=== PATIENT | male | born 1980 | race Caucasian/White ===

== ENCOUNTER → 2017-11-03 | Outpatient (REF) | payer MEDICAID ==
[2017-11-03 12:13] LABS: BASO # 0.1 10^3/uL (0.0-0.2); BASO % 0.3 % (0.0-1.0); EOS # 0.9 10^3/uL (0.0-0.50); EOS % 5.4 % (0.0-3.0); HEMATOCRIT 45.1 % (42.0-52.0); HEMOGLOBIN 14.7 g/dl (13.5-17.5); IMMATURE GRANULOCYTE % 0.5 % (0-3.0); LYMPH # 2.9 10^3/uL (1.5-4.5); LYMPH % 16.9 % (24.0-44.0); MEAN CORPUSCULAR HEMOGLOBIN 31.6 pg (27.0-33.0); MEAN CORPUSCULAR HGB CONC 32.6 g/dl (32.0-36.5); MONO # 1.1 10^3/uL (0.0-0.8); MONO % 6.1 % (0.0-5.0); NEUTROPHILS # 12.2 10^3/uL (1.8-7.7); NEUTROPHILS % 70.8 % (36.0-66.0); PLATELET COUNT, AUTOMATED 309 10^3/uL (150-450); RED BLOOD COUNT 4.65 10^6/uL (4.30-6.10); RED CELL DISTRIBUTION WIDTH 13.7 % (11.5-14.5); WHITE BLOOD COUNT 17.3 10^3/uL (4.0-10.0)
[2017-11-03 12:45] LABS: TOTAL 25(OH) VITAMIN D 13.3 NG/ML (30.0-100.0)
[2017-11-03 13:17] LABS: ALBUMIN 3.8 GM/DL (3.2-5.2); ALBUMIN/GLOBULIN RATIO 1.15 (1.00-1.93); ALKALINE PHOSPHATASE 55 U/L (45-117); ALT/SGPT 17 U/L (12-78); ANION GAP 7 MEQ/L (8-16); AST/SGOT 18 U/L (7-37); BILIRUBIN,TOTAL 0.3 MG/DL (0.2-1.0); BLOOD UREA NITROGEN 8 MG/DL (7-18); CARBON DIOXIDE LEVEL 26 MEQ/L (21-32); CHLORIDE LEVEL 113 MEQ/L (98-107); CHOLESTEROL LEVEL 140 MG/DL (<200); CHOLESTEROL RISK RATIO 2.916 (<5); CREATININE FOR GFR 1.27 MG/DL (0.70-1.30); GLOMERULAR FILTRATION RATE > 60.0 (>60); GLUCOSE, FASTING 91 MG/DL (70-100); HDL CHOLESTEROL 48 MG/DL (>40); LDL CHOLESTEROL 77.6 MG/DL (<100); NON-HDL-C 92 MG/DL; POTASSIUM SERUM 4.9 MEQ/L (3.5-5.1); SODIUM LEVEL 146 MEQ/L (136-145); THYROID STIMULATING HORMONE 0.712 uIU/ML (0.358-3.740); TOTAL PROTEIN 7.1 GM/DL (6.4-8.2); TRIGLYCERIDES LEVEL 72 MG/DL (<150)
== END ==
LOC: M SFHCADAM 08:34
DX: R03.0 Elevated blood-pressure reading, without diagnosis of hypertension (principal)

== ENCOUNTER → 2017-11-12 | Outpatient (REF) | payer MEDICAID ==
[2017-11-12 19:10] LABS: BASO # 0.1 10^3/uL (0.0-0.2); BASO % 0.3 % (0.0-1.0); EOS # 0.6 10^3/uL (0.0-0.50); EOS % 4.4 % (0.0-3.0); HEMATOCRIT 45.4 % (42.0-52.0); IMMATURE GRANULOCYTE % 0.8 % (0-3.0); LYMPH # 3.5 10^3/uL (1.5-4.5); LYMPH % 24.5 % (24.0-44.0); MEAN CORPUSCULAR HEMOGLOBIN 31.4 pg (27.0-33.0); MEAN CORPUSCULAR VOLUME 95.2 fl (80.0-96.0); MONO # 0.9 10^3/uL (0.0-0.8); MONO % 6.4 % (0.0-5.0); NEUTROPHILS # 9.1 10^3/uL (1.8-7.7); NEUTROPHILS % 63.6 % (36.0-66.0); PLATELET COUNT, AUTOMATED 338 10^3/uL (150-450); RED BLOOD COUNT 4.77 10^6/uL (4.30-6.10); RED CELL DISTRIBUTION WIDTH 13.6 % (11.5-14.5); WHITE BLOOD COUNT 14.3 10^3/uL (4.0-10.0)
[2017-11-12 19:19] LABS: REASON FOR REVIEW WBC/LEUKEMIA/BLAST; SLIDE REVIEW Report; SOURCE PERIPHERAL SMEAR
== END ==
LOC: M SFHCADAM 14:13
DX: D72.829 Elevated white blood cell count, unspecified (principal)

== ENCOUNTER → 2018-02-25 | Outpatient (CLI) | payer OTHER, MEDICAID | LOC: M PAIN 08:30 | DX: G56.23 Lesion of ulnar nerve, bilateral upper limbs (principal); G89.29 Other chronic pain; I10 Essential (primary) hypertension; F32.9 Major depressive disorder, single episode, unspecified; F41.9 Anxiety disorder, unspecified; F17.200 Nicotine dependence, unspecified, uncomplicated; Z79.899 Other long term (current) drug therapy; Z86.59 Personal history of other mental and behavioral disorders; Z98.890 Other specified postprocedural states | CPT/HCPCS: G0463 ==

== ENCOUNTER → 2018-05-24 | Outpatient (REF) | payer OTHER, MEDICAID ==
[2018-05-24 16:47] LABS: TOTAL 25(OH) VITAMIN D 28.4 NG/ML (30.0-100.0)
== END ==
LOC: M SFHCADAM 14:41
DX: E55.9 Vitamin D deficiency, unspecified (principal)

== ENCOUNTER → 2018-05-24 | Outpatient (CLI) | payer OTHER, MEDICAID | LOC: M ADAMS 14:53 | DX: M79.672 Pain in left foot (principal) | CPT/HCPCS: 73630 ==

== ENCOUNTER 2018-12-23 08:36 | Emergency (ER) | payer MEDICAID, OTHER ==
[~2018-12-23] VITALS: Ht 172.7 cm; Wt 91.5 kg
[2018-12-23] MEDS ORDERED: GABA-1171 PO (08:43)
[2018-12-23] MEDS ORDERED: AMOX875T2 PO (08:43)
[2018-12-23] MEDS ORDERED: DULO1CAP6 PO (08:43)
[2018-12-23] MEDS ORDERED: BUSP10TA PO (08:43)
[2018-12-23] MEDS ORDERED: KETOROLAC 30 MG/ML VIAL (J1885) IV ONE (09:15)
[2018-12-23] MEDS ORDERED: NS 1,000 ML IV ONE (09:15)
[2018-12-23 09:43] LABS: BASO % 0.2 % (0.0-1.0); EOS # 0.3 10^3/uL (0.0-0.50); EOS % 2.2 % (0.0-3.0); HEMOGLOBIN 12.3 g/dl (13.5-17.5); LYMPH # 2.3 10^3/uL (1.5-4.5); LYMPH % 15.9 % (24.0-44.0); MEAN CORPUSCULAR HEMOGLOBIN 32.5 pg (27.0-33.0); MEAN CORPUSCULAR HGB CONC 33.2 g/dl (32.0-36.5); MEAN CORPUSCULAR VOLUME 97.6 fl (80.0-96.0); MONO # 1.2 10^3/uL (0.0-0.8); MONO % 8.3 % (0.0-5.0); NEUTROPHILS # 10.8 10^3/uL (1.8-7.7); NEUTROPHILS % 72.7 % (36.0-66.0); PLATELET COUNT, AUTOMATED 264 10^3/uL (150-450); RED BLOOD COUNT 3.79 10^6/uL (4.30-6.10); WHITE BLOOD COUNT 14.8 10^3/uL (4.0-10.0)
[2018-12-23 10:10] LABS: ERYTHROCYTE SEDIMENTATION RATE 35 mm/hr (0-15)
[2018-12-23 10:26] LABS: ALBUMIN 3.3 GM/DL (3.2-5.2); BILIRUBIN,DIRECT 0.2 MG/DL (0.0-0.2); BILIRUBIN,TOTAL 0.6 MG/DL (0.2-1.0); C REACTIVE PROTEIN QUANTITATIV 5.12 MG/DL (0.00-0.30); TOTAL PROTEIN 6.2 GM/DL (6.4-8.2)
[2018-12-23] MEDS ORDERED: ISOVUE-370 76% 100ML VIAL (Q9967) As Ordered ONE (10:49)
--- NOTE | 2018-12-23 11:30 | REP ---
MAXILLOFACIAL CT STUDY WITH IV CONTRAST: HISTORY: Left dental swelling. Rule out abscess. A BB is affixed to the skin superior to the area of concern. CT CONTRAST DOSE: 75 mL of intravenous Isovue 370. CT FINDINGS: The opaque BB is seen at the anterior portion of the zygomatic arch on the left side. There is left malar facial swelling diffusely. There is extensive opacification of the left maxillary sinus. Bony sinus margins are intact. There are carious left maxillary teeth. There is subtle radiolucency around the roots of the posterior most maxillary molar on the left. Adjacent to the left maxillary alveolus, there is a low-density collection with an enhancing margin consistent with a developing abscess. This measures 1.3 x 2.5 x 1.6 cm in diameter. There is surrounding inflammatory edema. No other abnormal facial fluid collection is seen. The parotid and submandibular glands are normal and symmetric. Slightly prominent reactive anterior cervical nodes are noted. There is minimal mucosal thickening in the right maxillary and bilateral ethmoid air cells. The paranasal sinuses are otherwise clear. No intraorbital or intracranial abnormality is seen in the soft tissues. IMPRESSION: Nearly complete opacification of the left maxillary sinus. Carious left maxillary teeth. There is a 2.5 x 1.3 x 1.6 cm low density area with enhancing margins consistent with developing abscess just lateral to the left maxillary alveolus. Surrounding edema. Electronically Signed by Yeison Scott MD 12/23/2018 02:23 P
[2018-12-23] MEDS ORDERED: MORPHINE 4 MG/ML 1ML VIAL/SYRINGE (J2270) IV ONE (11:45)
[2018-12-23] MEDS ORDERED: CLINDAMYCIN 900 MG in IV 1 EA IV ONE (11:45)
[2018-12-23] MEDS ORDERED: PERC5TAB12 PO (13:04)
[2018-12-23 13:09] VITALS: BP 142/88
--- NOTE | 2018-12-27 14:30 | ED PDOC ---
Post-Departure Follow-Up dr galvan and luz elena denson faxed formal report of ct max fac for fu Jillian Street MD Dec 27, 2018 14:30
== END 2018-12-23 13:22 | disposition home or self-care (01) ==
LOC: M ED 08:36
DX: K04.7 Periapical abscess without sinus (principal); I10 Essential (primary) hypertension; Z79.899 Other long term (current) drug therapy; F17.210 Nicotine dependence, cigarettes, uncomplicated
CPT/HCPCS: 70487; 80047; 80076; 83605; 85025; 85652; 86140; 87040; 96361; 96365; 96375; 99284; J1885; J2270; Q9967

== ENCOUNTER → 2019-02-21 | Outpatient (CLI) | payer OTHER, MEDICAID ==
[~2019-02-21] MED LIST: AMOX875T2 PO; AUGM875T28 PO; BUPIVACAINE HCL 0.25% 30 ML VIAL As Ordered ONE; BUSP10TA PO; DULO1CAP6 PO; GABA-1171 PO; ISOVUE-M 200 41% 20ML VIAL (Q9966) As Ordered ONE; LIDOCAINE 1% SDV INJ 30 ML VIAL As Ordered ONE; PERC5TAB12 PO; PRED20TA PO; TRIAMCINOLONE ACETONIDE SUSP 40 MG/ML VIAL (J3301) As Ordered ONE
--- NOTE | 2019-02-25 00:28 | ECWPNPC ---
PATIENT NAME: MILLICENT NAVARRO : 1980 GENDER: MALE VISIT DATE: 02/21/2019 DISCHARGE DATE: 02/21/19 1606 VISIT LOCKED DATE TIME: PHYSICIAN: ELAN PANG MD RESOURCE: ELAN PANG MD REASON FOR APPOINTMENT 1. BILATERAL HAND PAIN HISTORY OF PRESENT ILLNESS PAIN SCREENING: PATIENT HAS A COMPLAINT OF ACUTE OR CHRONIC PAIN :YES 38 YEAR OLD MALE PATIENT WITH A HISTORY OF CHRONIC UPPER EXTREMITY PAIN. THE PATIENT DESCRIBES THE PAIN TENDER, SHARP, AND DAILY WITH A PAIN SCORE OF 7-10/10 DEPENDING ON PHYSICAL ACTIVITY. THE PATIENT SAYS HE HAS BEEN SUFFERING FROM THIS PAIN FOR MANY YEARS. THE PATIENT STATES HE HAS HAD SURGERIES OF BOTH HANDS DONE IN THE PAST, BUT HIS PAIN STILL PERSISTS. THE PATIENT SAYS THE PAIN IS AFFECTING HIS ABILITY TO GRASP ANYTHING WITH HIS HANDS, WORK, OR FUNCTION IN DAILY LIFE ACTIVITIES. PATIENT DENIES UNEXPLAINABLE WEIGHT LOSS, FEVER, CHILLS, NEW CHANGES ON HIS URINARY OR BOWEL CONTROL. FALL RISK SCREENING: SCREENING :NO FALLS REPORTED IN THE LAST YEAR CURRENT MEDICATIONS TAKING CYMBALTA 60 MG CAPSULE DELAYED RELEASE PARTICLES 1 CAPSULE ORALLY ONCE A DAY TAKING BUSPIRONE HCL 10 MG TABLET 1 TABLET ORALLY THREE TIMES A DAY TAKING GABAPENTIN 300 MG CAPSULE 1 CAPSULE ORALLY TWICE DAILY NOT-TAKING AMOXICILLIN-POT CLAVULANATE 875-125 MG TABLET 1 TABLET ORALLY EVERY 12 HRS NOT-TAKING TIZANIDINE HCL 2 MG TABLET 1 TABLET NEEDED ORALLY BEFORE BEDTIME MAY REPEAT IN 4 HRS MDD2 NOT-TAKING LISINOPRIL 10 MG TABLET 1 TABLET ORALLY ONCE A DAY NOT-TAKING VITAMIN D 2000 UNIT TABLET 1 TABLET ORALLY ONCE A DAY MEDICATION LIST REVIEWED AND RECONCILED WITH THE PATIENT PAST MEDICAL HISTORY JARET DEP MARIJUANA-MEDICAL HTN -EKG 12/15 SR DEPRESSION/ANXIETY H/O OPIATE ADDICTION VIT D DEF CTS - B ALLERGIES N.K.D.A. SURGICAL HISTORY CARPAL TUNNEL RELEASE, B 2001 CHOLECYSTECTOMY TEENAGER ULNAR/CARPAL TUNNEL RELEASE, B 2010 2 TEETH EXTRACTED 2018 FAMILY HISTORY FATHER: 50 YRS, CAD, S/P CABG, [place], DM2 - INSULIN DEP, DIAGNOSED WITH HEART DISEASE, DIABETES MOTHER: 50 YRS, CANCER - LUNG, PANCREATIC, CANCER SIBLINGS: ALIVE, 1977 - ESTRANGED 1980 - ESTRANGED SON(S): ALIVE 18 YRS, NO KNOWN MEDICAL PROBLEMS- ESTRANGED DAUGHTER(S): ALIVE 16 YRS, NO KNOWN MEDICAL PROBLEMS -ESTRANGED 2 BROTHER(S) - HEALTHY. 1 SON(S) , 1 DAUGHTER(S) - HEALTHY. SOCIAL HISTORY GENERAL: TOBACCO USE ARE YOU A:CURRENT SMOKER ARE YOU INTERESTED IN QUITTING?NOT READY TO QUIT COUNSELED THE PATIENT ON SMOKING EFFECTS, EDUCATION [id number]/26/2019 HOW MANY CIGARETTES A DAY DO YOU SMOKE?6-10 HOW SOON AFTER YOU WAKE UP DO YOU SMOKE YOUR FIRST CIGARETTE?6-30 MIN HOW OFTEN DO YOU SMOKE CIGARETTES?EVERY DAY PATIENT COUNSELED ON THE DANGERS OF TOBACCO USE AND URGED TO QUIT:02/21/2019 OTHERS AT HOME: ELMER, HERMELINDA.. EDUCATION LEVEL OF EDUCATION:NOT FINISHED HIGH SCHOOL 11 TH GRADE LANGUAGE LANGUAGES SPOKEN:GUINEAN DOMESTIC VIOLENCE DO YOU FEEL SAFE IN YOUR ENVIRONMENT?YES BMI CARE GOAL FOLLOW-UP ABOVE NORMAL BMI FOLLOW-UPDIETARY MANAGEMENT EDUCATION, GUIDANCE, AND COUNSELING RECREATIONAL DRUG USE DRUG USE?YES HOW OFTEN AND HOW MUCH? MEDICAL MARIJUANA, 2 GRAMS DAILY, 3-4 JOINTS DAILY LEARNING BARRIERS / SPECIAL NEEDS BARRIERS TO LEARNING?NO HEARING IMPAIRED?NO VISION IMPAIRED?NO COGNITIVELY IMPAIRED?NO READINESS TO LEARN?YES LEARNING PREFERENCES?YES :DEMONSTRATION/VERBAL INSTRUCTION LEARNING CAPABILITIES PRESENT?YES EMOTIONAL BARRIERS?NO SPECIAL DEVICES?NO WEIGHMASTER NEEDED?NO LUNG CANCER SCREENING SMOKING STATUS:CURRENT SMOKER PAIN CLINIC PFS, CLERGY, PUBLIC HEALTH REFERRALS PFS REFERRAL NEEDED?NO CLERGY REFERRAL NEEDED?NO PUBLIC HEALTH REFERRAL NEEDED?NO WAS THE PROVIDER NOTIFIED OF ANY PERTINENT INFO? N/A HAS THE PATIENT BEEN EDUCATED REGARDING HIS/HER PLAN OF CARE?YES HAS THE PATIENT BEEN EDUCATED REGARDING PAIN, THE RISK FOR PAIN, THE IMPORTANCE OF EFFECTIVE PAIN MANAGEMENT, AND THE PAIN ASSESSMENT PROCESS?YES LATEX QUESTIONNAIRE LATEX ALLERGY : HAVE YOU EVER DEVELOPED ANY TYPE OF REACTION AFTER HANDLING LATEX PRODUCTS SUCH RUBBER GLOVES, CONDOMS, DIAPHRAGMS, BALLOONS, SOCKS, OR UNDERWEAR?NO LATEX ALLERGY : HAVE YOU EVER DEVELOPED ANY TYPE OF REACTION DURING OR AFTER DENTAL APPOINTMENT, VAGINAL/RECTAL EXAMINATION, SURGICAL PROCEDURE, OR ANY OTHER EXPOSURE?NO LATEX RISK : HAVE YOU EVER HAD ANY DIFFICULTY BREATHING OR HIVES AFTER EATING OR HANDLING ANY FRUITS, OR VEGETABLES; SUCH KIWI, BANANAS, STONE FRUITS, OR CHESTNUTSNO LATEX RISK : DO YOU HAVE A PREVIOUS PERSONAL HISTORY OF MORE THAN NINE SURGERIES, SPINA BIFIDA, OR REPEATED CATHERIZATIONS? NO LATEX RISK : ARE YOU FREQUENTLY EXPOSED TO LATEX PRODUCTS IN YOUR OCCUPATION?NO DATE ASKED : 02/21/2019 CAFFEINE CAFFEINE USE?YES HOW OFTEN AND HOW MUCH? 1 CUP OF COFFEE PER DAY, 1-2 SODAS PER DAY ADVANCE DIRECTIVE ADVANCE DIRECTIVE DISCUSSED WITH PATIENT:YES 02/21/19 PT DOES NOT HAVE ANY ADVANCED DIRECTIVES AND HE DECLINES INFORMATION ON HCP AT THIS TIME. AD WORSHIP WORSHIP NO WORSHIP MARITAL STATUS: . ALCOHOL SCREENING DID YOU HAVE A DRINK CONTAINING ALCOHOL IN THE PAST YEAR?NO POINTS0 INTERPRETATIONNEGATIVE OCCUPATION: NOT WORKING - SEEKING DISABILITY. SEXUAL HX HAD SEX IN THE LAST 12 MONTHS (VAGINAL, ORAL, OR ANAL)?YES WITHWOMEN ONLY HAVE YOU EVER HAD AN STD?NO HOSPITALIZATION/MAJOR DIAGNOSTIC PROCEDURE CHOLECYSTECTOMY A TEEN CYST ON LEG-RIGHT GROIN REVIEW OF SYSTEMS REVIEWED BY: PROVIDER: ELAN PANG MD . CONSTITUTIONAL: ANY CHANGE IN YOUR MEDICAL CONDITION? NO . CHILLS NO . FEVER NO . INFECTION: DO YOU HAVE NEW INFECTIONS? NO . DO YOU HAVE HISTORY OF MRSA? NO . MUSCULOSKELETAL: ANY NEW PATTERNS OF PAIN OR NUMBNESS? YES, FINGER TIPS ICE COLD AND THROBBING PAIN LAST 3 DIGITS BILATERAL. HAVING TRAOUBLE EATING AND WRITING DUE TO THE NUMBNESS. . SYTEMIC LUPUS NO . GASTROENTEROLOGY: ANY NEW CHANGE IN BOWEL CONTROL? NO . BARRETTS ESOPHAGUS NO . CIRRHOSIS NO . HEPATITIS NO . LIVER FAILURE NO . ACID REFLUX NO . UNEXPLAINED WEIGHT LOSS NO . GENITOURINARY: ANY NEW CHANGE IN BLADDER CONTROL? NO . IS THERE A CHANCE YOU COULD BE ? NO . HEMATOLOGY/LYMPH: DO YOU TAKE ANY BLOOD THINNERS? (FOR EXAMPLE- COUMADIN, PLAVIX, AGGRENOX, PLATEL, PRADAXA, OR XARELTO) NO . WHEN WAS YOUR LAST DOSE? DATE: TIME: . LOW PLATELET COUNT NO . SICKLE CELL DISEASE NO . VON WILLIEBRANDS NO . FACTOR V LEIDEN NO . THALLASEMIA NO . ANEMIA NO . EASY BRUISING NO . NEUROLOGY: HAVE YOU FALLEN IN THE PAST 12 MONTHS? NO . ANY NEW EXTREMITY NUMBNESS OR WEAKNESS? YES, BILATERAL HAND NUMBNESS PROGRESSIVELY GOTTEN WORSE SINCE 01/29/18 . HEAD INJURY NO . DEMENTIA NO . CEREBRAL PALSY NO . MULTIPLE SCLEROSIS NO . DIZZINESS NO . HEADACHE NO . STROKES NO . VERTIGO NO . CARDIOLOGY: DO YOU HAVE A PACEMAKER OR DEFIBRILLATOR? NO . ANGINA NO . HEART ATTACK NO . HEART SURGERY NO . CONGESTIVE HEART FAILURE/FLUID OVERLOAD NO . CHEST PAIN NO . HIGH BLOOD PRESSURE NO . IRREGULAR HEART BEAT NO . RESPIRATORY: HAVE YOU BEEN SICK IN THE PAST WEEK? NO . FEVER NO . FLU LIKE SYMPTOMS? NO . CPAP NO . BYPAP NO . ASTHMA NO . EMPHYSEMA NO . CHRONIC LUNG DISEASES NO . SHORTNESS OF BREATH ON EXERTION NO . COUGH YES "SMOKER'S COUGH" . SNORING NO . INTEGUMENTARY: DO YOU HAVE ANY RASHES OR OPEN SORES? NO . ALLERGIC/IMMUNO: ARE YOU ALLERGIC TO IV DYE? NO . ANY NEW ALLERGIES? NO . PSYCHIATRIC: DO YOU HAVE THOUGHTS OF HURTING YOURSELF OR SOMEONE ELSE? NO . ARE YOU ABUSED, NEGLECTED, OR IN AN UNSAFE ENVIRONMENT? NO . ENDOCRINOLOGY: ARE YOU DIABETIC? NO . THYROID DISORDER NO . OTHER: DO YOU NEED ANY PRESCRIPTIONS? NO . IF YES, PLEASE LIST: ____ . ANY NEW PROBLEMS WITH YOUR MEDICATIONS? NO . WHEN DID YOU LAST EAT? ____ . WHEN DID YOU LAST DRINK? ____ . WHAT DID YOU LAST DRINK? ____ . NAME OF PERSON DRIVING YOU HOME? ____ . DO YOU HAVE ANY OTHER QUESTIONS OR CONCERNS NO . VITAL SIGNS WT 199.0 LBS, HT 5'6", BMI 32.12 INDEX, BP 133/89 MM HG, HR 89 /MIN, RR 18 /MIN, TEMP 97.7 F, OXYGEN SAT % 100%, SAFE IN ENV? (Y/N) Y, NA INITIALS AW 1425, REVIEWED BY: BOOKER. EXAMINATION GENERAL EXAMINATION: PATIENT IS ALERT O X 3 AND COOPERATIVE. LUNGS CLEAR, TO AUSCULTATION. HEART: NO MURMURS OR GALLOPS; FACIAL CRANIAL NERVES ARE GROSSLY NORMAL. GOOD SYMMETRY OF FACIAL MUSCLE MOVEMENT. NORMAL VISUAL LOPEZ. TENDERNESS IN THE ELBOWS AND WRISTS. 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 NAVARRO'S PAIN MANAGEMENT CASE. I DISCUSSED WITH THE PATIENT ABOUT TRYING ULNAR NERVE INJECTIONS, HOWEVER THE PATIENT IS NOT INTERESTED IN TRYING AT THIS TIME DUE TO HAVING THEM DONE IN THE PAST WITH LITTLE RELIEF. THE PATIENT WANTS TO TRY MANAGING HIS PAIN WITH MEDICATION, THEREFORE I WILL REFER THE PATIENT TO [facility]S PALLIATIVE CARE PROGRAM TO CONTINUE MEDICATION MANAGEMENT. THE PATIENT WAS ADVISED TO CALL IF HE'D LIKE TO BE SEEN HERE FOR INJECTION THERAPY. INSTRUCTIONS WERE GIVEN, QUESTIONS WERE ANSWERED, PATIENT REPORTS UNDERSTANDING AND AGREES WITH THE PLAN. I, LARA JIMENEZ, DOCUMENTED THE ABOVE INFORMATION ACTING A SCRIBE FOR DR. PANG. I HAVE REVIEWED THE ABOVE DOCUMENT, WRITTEN BY LARA OCONNELLIBSimin AND I VERIFY THAT IT IS ACCURATE. DEAR SHELLY GR PA-C: THANK YOU FOR YOUR KIND REFERRAL OF MILLICENT NAVARRO. IF YOU WANT TO DISCUSS HIS CASE WITH ME PLEASE CALL ME AT THE PAIN CENTER AT [phone]. SINCERELY, ELAN PANG MD PAIN MEDICINE . PROCEDURE CODES FA211 ESTABILISHED PATIENT [facility] CHARGE [id number] CURRENT MEDS W/DOSAGES DOCUMENTED G8730 PAIN ASSESS POS TOOL F/U PLAN DOC DISPOSITION & COMMUNICATION ELECTRONICALLY SIGNED BY ELAN PANG MD, MD ON 02/24/2019 AT 02:24 PM EDT DISCLAIMER : THIS IS A VISIT SUMMARY EXTRACTED FROM THE [employer] CHART. IT IS NOT A COPY OF THE [employer] PROGRESS NOTE. ROBERTO
== END ==
LOC: M PAIN 14:15
PROVIDERS: ATTEND Anesthesiology
DX: M79.2 Neuralgia and neuritis, unspecified (principal); G89.29 Other chronic pain; I10 Essential (primary) hypertension; Z86.59 Personal history of other mental and behavioral disorders; F17.210 Nicotine dependence, cigarettes, uncomplicated; Z79.899 Other long term (current) drug therapy

== ENCOUNTER 2019-05-27 10:25 | Emergency (ER) | payer MEDICAID, OTHER ==
[~2019-05-27] VITALS: Ht 172.7 cm; Wt 95.3 kg
[~2019-05-27 10:25] MED LIST changes: -AUGM875T28 PO; -BUPIVACAINE HCL 0.25% 30 ML VIAL As Ordered ONE; -ISOVUE-M 200 41% 20ML VIAL (Q9966) As Ordered ONE; -LIDOCAINE 1% SDV INJ 30 ML VIAL As Ordered ONE; -PRED20TA PO; -TRIAMCINOLONE ACETONIDE SUSP 40 MG/ML VIAL (J3301) As Ordered ONE
[2019-05-27] MEDS ORDERED: KETOROLAC 30 MG/ML VIAL (J1885) IV ONE (11:00)
[2019-05-27] MEDS ORDERED: NS 1,000 ML IV ONE (11:00)
[2019-05-27 11:08] LABS: BASO % 0.3 % (0.0-1.0); EOS # 0.6 10^3/uL (0.0-0.5); EOS % 4.9 % (0.0-3.0); HEMOGLOBIN 14.6 g/dl (13.5-17.5); LYMPH # 2.4 10^3/uL (1.5-5.0); MEAN CORPUSCULAR HEMOGLOBIN 31.5 pg (27.0-33.0); MEAN CORPUSCULAR HGB CONC 33.2 g/dl (32.0-36.5); MONO # 1.1 10^3/uL (0.0-0.8); MONO % 8.9 % (0.0-5.0); NEUTROPHILS # 8.3 10^3/uL (1.5-8.5); NEUTROPHILS % 66.3 % (36.0-66.0); PLATELET COUNT, AUTOMATED 261 10^3/uL (150-450); RED BLOOD COUNT 4.63 10^6/uL (4.30-6.10); WHITE BLOOD COUNT 12.5 10^3/uL (4.0-10.0)
[2019-05-27] MEDS ORDERED: ISOVUE-370 76% 100ML VIAL (Q9967) As Ordered ONE (11:10)
[2019-05-27 11:27] LABS: ERYTHROCYTE SEDIMENTATION RATE 9 mm/hr (0-15)
[2019-05-27 11:30] LABS: ALBUMIN 3.6 GM/DL (3.2-5.2); BILIRUBIN,DIRECT 0.3 MG/DL (0.0-0.2); BILIRUBIN,TOTAL 1.5 MG/DL (0.2-1.0); C REACTIVE PROTEIN QUANTITATIV 4.03 MG/DL (0.00-0.30)
[2019-05-27] MEDS ORDERED: methylPREDNISolone INJ 125 MG/2 ML VIAL (J2930) IV ONE (11:45)
[2019-05-27] MEDS ORDERED: AMPICILLIN SOD/SULBACTAM SOD 3 GM in D5W MINI-BAG PLUS 100 ML IV ONE (11:45)
--- NOTE | 2019-05-27 11:45 | REP ---
Clinical: Right facial swelling. Technique: Axial contrast enhanced images with coronal and sagittal re-formations using 100 ml Isovue 370 intravenous contrast material. Findings: Moderate to significant right-sided facial swelling subcutaneous infiltration is appreciated along with evidence for chronic sinus disease including significant mucoperiosteal changes of the bilateral maxillary sinuses (right greater than left). No drainable collection/abscess. No mass lesion. No subcutaneous emphysema. Oral cavity as well as the oropharynx through hypopharynx with associated soft tissue structures, fat spaces, and neurovascular structures appear relatively symmetric and normal. The osseous structures are intact without fracture / dislocation or periosteal reaction. Impression: 1. Significant right facial inflammatory changes without underlying abscess, mass, fluid or drainable collection. Findings may reflect cellulitis and/or changes secondary to dental disease or sinusitis. 2. Moderate sinusitis. Electronically Signed by Lenin Gruber MD 05/27/2019 11:37 A
[2019-05-27] MEDS ORDERED: AUGM875T28 PO (12:50)
[2019-05-27] MEDS ORDERED: PRED20TA PO (12:50)
[2019-05-27 12:53] VITALS: BP 130/84
== END 2019-05-27 12:59 | disposition home or self-care (01) ==
LOC: M ED 10:25
DX: L03.211 Cellulitis of face (principal); J32.9 Chronic sinusitis, unspecified; F17.218 Nicotine dependence, cigarettes, with other nicotine-induced disorders
CPT/HCPCS: 70487; 80047; 80076; 83605; 85025; 85652; 86140; 87040; 96361; 96365; 96374; 96375; 99283; J1885; J2930; Q9967

== ENCOUNTER → 2019-09-01 | Outpatient (CLI) | payer OTHER ==
[~2019-09-01] MED LIST changes: +AUGM875T28 PO; +PRED20TA PO
--- NOTE | 2019-09-01 19:05 | REP ---
THORACIC SPINE SERIES: Three AP and lateral views of thoracic spine performed. No compression fracture is seen. There is normal thoracic kyphosis and alignment. There is mild diffuse spurring and mild diffuse disc space narrowing with subchondral sclerosis. Posterior elements are intact. IMPRESSION: Mild diffuse degenerative changes without fracture or dislocation. Electronically Signed by Jaspreet Mena MD 09/02/2019 05:08 P
--- NOTE | 2019-09-01 19:07 | REP ---
LUMBOSACRAL SPINE SERIES: Five views of the lumbosacral spine are performed. There is no fracture or dislocation. Vertebral bodies are normal in height and are well aligned with normal lumbar lordosis. There is no spondylolysis or spondylolisthesis. There is mild diffuse spurring. There is slight disc space narrowing at L1-2, L2-3, and L5-S1. There is diffuse sclerosis at the posterior facet joints with mild spurring as well particularly at L4-5 and L5-S1. Posterior elements are intact. IMPRESSION: Mild diffuse degenerative changes without fracture or dislocation. Electronically Signed by Jaspreet Mena MD 09/02/2019 05:10 P
== END ==
LOC: M RAD 17:37
PROVIDERS: ATTEND Physician Assistant
DX: M54.5 Low back pain (principal)

== ENCOUNTER 2019-10-11 19:23 | Inpatient (IN) | payer MEDICAID, OTHER ==
[~2019-10-11] VITALS: Ht 172.7 cm; Wt 100.0 kg
[2019-10-11] MEDS ORDERED: ONDANSETRON 4MG/2ML VIAL (J2405 PER 1MG) IV ONE (19:45)
[2019-10-11] MEDS ORDERED: NS 1,000 ML IV ONE (19:45)
[2019-10-11] MEDS ORDERED: ISOVUE-370 76% 100ML VIAL (Q9967) As Ordered ONE (19:46)
[2019-10-11 19:58] LABS: BASO # 0.1 10^3/uL (0.0-0.2); BASO % 0.4 % (0.0-1.0); EOS # 0.4 10^3/uL (0.0-0.5); EOS % 1.9 % (0.0-3.0); HEMATOCRIT 47.2 % (42.0-52.0); HEMOGLOBIN 15.6 g/dl (13.5-17.5); LYMPH # 3.7 10^3/uL (1.5-5.0); LYMPH % 18.7 % (24.0-44.0); MEAN CORPUSCULAR HEMOGLOBIN 31.2 pg (27.0-33.0); MEAN CORPUSCULAR HGB CONC 33.1 g/dl (32.0-36.5); MEAN CORPUSCULAR VOLUME 94.4 fl (80.0-96.0); MONO % 5.2 % (0.0-5.0); NEUTROPHILS # 14.1 10^3/uL (1.5-8.5); NEUTROPHILS % 71.4 % (36.0-66.0); PLATELET COUNT, AUTOMATED 309 10^3/uL (150-450); WHITE BLOOD COUNT 19.8 10^3/uL (4.0-10.0)
[2019-10-11 20:09] LABS: INR 1.07; PROTHROMBIN TIME 13.7 SECONDS (11.8-14.0)
[2019-10-11] MEDS: MORPHINE 4 MG/ML 1ML VIAL/SYRINGE (J2270) IV PRN ×2 (20:15→20:29)
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
[2019-10-11 20:35] LABS: ALBUMIN 3.9 GM/DL (3.2-5.2); ALT/SGPT 47 U/L (12-78); AMYLASE 64 U/L (25-115); BILIRUBIN,DIRECT 0.1 MG/DL (0.0-0.2); BILIRUBIN,TOTAL 0.5 MG/DL (0.2-1.0); BLOOD UREA NITROGEN 21 MG/DL (7-18); CALCIUM LEVEL 8.4 MG/DL (8.5-10.1); CARBON DIOXIDE LEVEL 22 MEQ/L (21-32); CHLORIDE LEVEL 110 MEQ/L (98-107); CK-MB VALUE MASS 8.2 NG/ML (<3.6); CPK CREATINE PHOSPHOKINASE 1168 U/L (39-308); CREATININE FOR GFR 1.15 MG/DL (0.70-1.30); ETHYL ALCOHOL (ETHANOL) 0.071 % (0.000-0.010); GLOMERULAR FILTRATION RATE > 60.0 (>60); GLUCOSE, FASTING 87 MG/DL (70-100); LIPASE 251 U/L (73-393); POTASSIUM SERUM 3.9 MEQ/L (3.5-5.1); SODIUM LEVEL 141 MEQ/L (136-145); TOTAL PROTEIN 7.5 GM/DL (6.4-8.2); TROPONIN I < 0.02 NG/ML (< 0.10)
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
[2019-10-11] MEDS ORDERED: HYDROMORPHONE HCL 0.5 MG/ 0.5 ML SYRINGE (J1170 PER 1) IV ONE (20:45)
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
[2019-10-11 21:57] LABS: AMPHETAMINES LEVEL URINE NEGATIVE (NEGATIVE); BARBITURATES URINE NEGATIVE (NEGATIVE); BENZODIAZEPINES URINE NEGATIVE (NEGATIVE); CANNABINOIDS URINE POSITIVE (NEGATIVE); COCAINE METABOLITE URINE NEGATIVE (NEGATIVE); METHADONE URINE NEGATIVE (NEGATIVE); OPIATES URINE POSITIVE (NEGATIVE); PHENCYCLIDINE URINE NEGATIVE (NEGATIVE)
[2019-10-11] MEDS ORDERED: ONDANSETRON 4MG/2ML VIAL (J2405 PER 1MG) IV PRN (22:00)
[2019-10-11] MEDS ORDERED: PERCOCET 5MG/325MG TAB PO PRN (22:00)
[2019-10-11] MEDS ORDERED: OXYC10TA12 PO (22:08)
[2019-10-11] MEDS: NS 1,000 ML IV SCH (22:09)
[2019-10-11] MEDS: KETOROLAC 30 MG/ML 1ML VIAL (J1885 PER 15MG) IV SCH (23:05)
[2019-10-11 23:21] VITALS: BP 146/82
[2019-10-11] MEDS: PERCOCET 5MG/325MG TAB PO PRN (23:34)
[2019-10-12] MEDS: MORPHINE 2 MG/ML 1ML VIAL (J2270) IV PRN ×4 (02:30→15:49)
[2019-10-12] MEDS: KETOROLAC 30 MG/ML 1ML VIAL (J1885 PER 15MG) IV SCH ×4 (05:56→23:17)
[2019-10-12 06:00] VITALS: BP 137/84
[2019-10-12 06:08] LABS: BASO % 0.3 % (0.0-1.0); EOS # 0.2 10^3/uL (0.0-0.5); EOS % 1.5 % (0.0-3.0); HEMATOCRIT 44.4 % (42.0-52.0); HEMOGLOBIN 14.7 g/dl (13.5-17.5); LYMPH # 3.4 10^3/uL (1.5-5.0); LYMPH % 26.1 % (24.0-44.0); MEAN CORPUSCULAR HEMOGLOBIN 31.7 pg (27.0-33.0); MEAN CORPUSCULAR HGB CONC 33.1 g/dl (32.0-36.5); MEAN CORPUSCULAR VOLUME 95.9 fl (80.0-96.0); MONO % 7.9 % (0.0-5.0); NEUTROPHILS # 8.3 10^3/uL (1.5-8.5); NEUTROPHILS % 63.4 % (36.0-66.0); PLATELET COUNT, AUTOMATED 259 10^3/uL (150-450); RED BLOOD COUNT 4.63 10^6/uL (4.30-6.10); WHITE BLOOD COUNT 13.1 10^3/uL (4.0-10.0)
[2019-10-12 06:34] LABS: ALBUMIN 3.1 GM/DL (3.2-5.2); ALT/SGPT 45 U/L (12-78); BILIRUBIN,TOTAL 1.4 MG/DL (0.2-1.0); BLOOD UREA NITROGEN 15 MG/DL (7-18); CALCIUM LEVEL 7.7 MG/DL (8.5-10.1); CARBON DIOXIDE LEVEL 24 MEQ/L (21-32); CHLORIDE LEVEL 114 MEQ/L (98-107); CREATININE FOR GFR 0.97 MG/DL (0.70-1.30); GLOMERULAR FILTRATION RATE > 60.0 (>60); GLUCOSE, FASTING 88 MG/DL (70-100); POTASSIUM SERUM 3.9 MEQ/L (3.5-5.1); SODIUM LEVEL 142 MEQ/L (136-145); TOTAL PROTEIN 6.2 GM/DL (6.4-8.2)
--- NOTE | 2019-10-12 07:28 | HPEPDOC ---
General Surgery H&P Date of Admission Oct 11, 2019 Attending Physician: TESSA WELCH MD History and Physical CHIEF COMPLAINT: trauma/loss of consciousness HISTORY OF PRESENT ILLNESS: Patient is a 38 M who roughly about 4 pm was working on trying to cut down a tree when his chain saw got stuck so he decided to wrap a chain around the tree and pull it with his tractor to get the chain saw loose. The tractor pulled the tree from the ground and this fell on him trapping him between the tree and the steering wheel. This was unwitnessed. Unknown how long he has been in that position. He was seen by friends/family sometime before 7 pm. He was woken up and was able to get himself free from the position and was b rought by friends to the emergency room. He was GCS 15 in the ER. No external signs of injury but complaining of a lot of anterior wall chest/rib pain. ALLERGIES: Please see below. HOME MEDICATIONS: Please see below. PAST MEDICAL HISTORY: 1. hypertension 2. chronic pain on narcotics for bilateral carpal tunnel syndrome 3. depression 4. explosive personality disorder 5. history of opiate addiction. PAST SURGICAL HISTORY: 1. bilateral carpal tunnel surgery 2. bilateral elbow surgery - ulnar/carpal tunnel release 3. cholecystectomy. PERSONAL/SOCIAL HISTORY: reports smoking 1 ppd, occasional alcohol use (he did drink 2 bottles of beer today), regular medical marijuana use. REVIEW OF SYSTEMS: GENERAL: was his usual state of health prior to accident. HEENT: denies vision or hearing problems. NECK: Denies any neck pain. CARDIOVASCULAR: reports occasional chest pain . MUSCULOSKELETAL: reports back pain, arm pain, wrist pain/numbness. SKIN: Denies rash. NEUROLOGIC: Denies headache, stroke and transient ischemic attack. PSYCHIATRIC: reports anxiety and depression. ENDOCRINE: Denies thyroid disease. HEMATOLOGY/ONCOLOGY: Denies any bleeding or clotting disorder. PULMONARY: Denies chronic cough, dyspnea and wheezing. GASTROINTESTINAL: Denies rectal bleeding, family history of colon cancer, constipation, diarrhea, dysphagia, heartburn and jaundice. GENITOURINARY: Denies dysuria, frequency, hematuria and nocturia. ENDOCRINE: Denies polydipsia, polyphagia, polyuria, heat or cold intolerance. INFECTIOUS: Denies any recent upper respiratory tract infection, UTI, need for use of antibiotics. NUTRITION: Reports good appetite. PHYSICAL EXAMINATION: VITAL SIGNS: Please see below. Primary Survey: ABCDs intact GCS 15 Secondary Survey: No scalp or facial injuries, small amount of dry blood in the left ear without any active bleeding or drainage. No raccoon sign. No midline neck tenderness step offs, mild muscle tenderness at the shoulder no gross chest wound. 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 MICROBIOLOGY: Please see below. IMAGING: CXR - negative pelvis XR - negative Head CT - negative CT C-spine - negative CT chest - 1. Nondisplaced fractures involving the right anterolateral 5th and 6th ribs. 2. No acute pulmonary injury. CT abd/pelvis 1. Fractures involving the right anterolateral 5th and 6th ribs without significant displacement. 2. No evidence of acute visceral injury. IMPRESSION AND PLAN: blunt trauma involving a falling tree ant. right 5th and 6th rib fracture without displacement, without flail possible involved soft tissue muscle injury with beginning rhabdomyolysis with increase CK loss of consciousness - concusssion no evidence of intracranial injury/bleeding Patient is hemodynamically stable. His main injury is that of 2 ant. rib fractures without displacement. He appears to be in a lot of pain and is preventing him from taking deep breaths, though he is maintaining adequate O2 staturations. Pain control is potentially a problem. He is taking roughly about 5 percocets a day for hand pain. I will start him on IV toradol is scheduled doses though I may need to adjust this later on depending on his kidney function. He is advised to take deep breathing exercises. His labs shows leukocytosis (prob reactive). Hgb and hct maybe slightly hemoc oncentrated. His alcohol level is elevated so this might have contributed to the trauma or even the extent of time he passed out. He potentially could have been trapped there for an hour or so and his CKs are elevated so potentially may develop rhabdomyolysis and this needs to be watched. He was given 1 L NS as a bolus in the ED. I will keep him on NS IVF at 150/hr overnight and watch the UO and adjust accordingly. Labs will be repeated in the morning.. Vital Signs Vital Signs Date Time Temp Pulse Resp B/P (MAP) Pulse Ox O2 Delivery O2 Flow Rate FiO2 10/12/19 06:44 21 10/12/19 06:00 98.0 96 137/84 (101) 97 Room Air I&Os I&O- Last 24 Hours up to 6 AM 10/12/19 05:59 Intake Total 1275 ml Output Total 600 ml Balance 675 ml Laboratory Data Labs 24H Laboratory Tests 2 10/11/19 19:49: Immature Granulocyte % (Auto) 2.4, Neutrophils (%) (Auto) 71.4H, Lymphocytes (%) (Auto) 18.7L, Monocytes (%) (Auto) 5.2H, Eosinophils (%) (Auto) 1.9, Basophils (%) (Auto) 0.4, Neutrophils # (Auto) 14.1H, Lymphocytes # (Auto) 3.7, Monocytes # (Auto) 1.0H, Eosinophils # (Auto) 0.4, Basophils # (Auto) 0.1, Nucleated Red Blood Cells % (auto) 0.0, Prothrombin Time 13.7, Prothromb Time International Ratio 1.07, Activated Partial Thromboplast Time 25.0, POC Glucose (Misc Panel) 89, POC Sodium (Misc Panel) 139, POC Potassium (Misc Panel) 4.5, POC Chloride (Misc Panel) 107, POC Total CO2 (Misc Panel) 23.0, POC Blood Urea Nitrogen (Misc Panel 27H, POC Ionized Calcium (Misc Panel) 4.2L, POC Creatinine (Misc Panel) 1.1, POC Hematocrit (Misc Panel) 49.0, Anion Gap 9, Glomerular Filtration Rate > 60.0, Calcium Level 8.4L, Total Bilirubin 0.5, Direct Bilirubin 0.1, Aspartate Amino Transf (AST/SGOT) 56H, Alanine Aminotransferase (ALT/SGPT) 47, Alkaline Phosphatase 78, Total Creatine Kinase 1168H, Creatine Kinase MB 8.2H, Creatine Kinase MB Relative Index 0.70, Troponin I < 0.02, Total Protein 7.5, Albumin 3.9, Albumin/Globulin Ratio 1.08, Amylase Level 64, Lipase 251, Ethyl Alcohol Level 0.071H 10/11/19 19:50: Lactic Acid Level 2.1*H 10/11/19 21:22: Urine Color STRAW, Urine Appearance CLEAR, Urine pH 5.0, Urine Specific [place] 1.016, Urine Protein NEGATIVE, Urine Glucose (UA) NEGATIVE, Urine Ketones NEGATIVE, Urine Blood 1+H, Urine Nitrite NEGATIVE, Urine Bilirubin NEGATIVE, Urine Urobilinogen 0.2, Urine Leukocyte Esterase NEGATIVE, Urine WBC (Auto) 1, Urine RBC (Auto) 0, Urine Hyaline Casts (Auto) 0, Urine Bacteria (Auto) NEGATIVE, Urine Squamous Epithelial Cells 0, Urine Sperm (Auto) , Urine Opiates Screen POSITIVEH, Urine Methadone Screen NEGATIVE, Urine Barbiturates Screen NEGATIVE, Urine Phencyclidine Screen NEGATIVE, Urine Amphetamines Screen NEGATIVE, Urine Benzodiazepines Screen NEGATIVE, Urine Cocaine Metabolite Screen NEGATIVE, Urine Cannabinoids Screen POSITIVEH 10/12/19 01:20: Lactic Acid Followup at 4 Hours 1.1 10/12/19 05:41: Immature Granulocyte % (Auto) 0.8, Neutrophils (%) (Auto) 63.4, Lymphocytes (%) (Auto) 26.1, Monocytes (%) (Auto) 7.9H, Eosinophils (%) (Auto) 1.5, Basophils (%) (Auto) 0.3, Neutrophils # (Auto) 8.3, Lymphocytes # (Auto) 3.4, Monocytes # (Auto) 1.0H, Eosinophils # (Auto) 0.2, Basophils # (Auto) 0.0, Nucleated Red Blood Cells % (auto) 0.0, Anion Gap 4L, Glomerular Filtration Rate > 60.0, Calcium Level 7.7L, Total Bilirubin 1.4#H, Aspartate Amino Transf (AST/SGOT) 83H, Alanine Aminotransferase (ALT/SGPT) 45, Alkaline Phosphatase 61, Total Protein 6.2L, Albumin 3.1#L, Albumin/Globulin Ratio 1.00 CBC/BMP Laboratory Tests 10/11/19 19:49 10/12/19 05:41 Home Medications Scheduled Buspirone HCl (Buspirone HCl) 10 Mg Tablet, 10 MG PO TID, (Reported) Duloxetine Hcl (Duloxetine HCl) 60 Mg Capsule.dr, 60 MG PO DAILY, (Reported) Gabapentin (Gabapentin) 100 Mg Capsule, 100 MG PO DAILY, (Reported) Scheduled PRN Oxycodone HCl (Oxycodone HCl) 10 Mg Tablet, 10 MG PO Q6H PRN for PAIN, (Reported) Allergies Coded Allergies: No Known Allergies (Unverified , 10/11/19) A-FIB/CHADSVASC A-FIB History Current/History of A-Fib/PAF?: No Current PO Anticoag Therapy: No TESSA WELHC MD Oct 12, 2019 07:28
[2019-10-12 08:05] LABS: BILIRUBIN,DIRECT 0.3 MG/DL (0.0-0.2); CPK CREATINE PHOSPHOKINASE 3293 U/L (39-308)
[2019-10-12] MEDS: SENOKOT S TAB PO SCH ×2 (08:49→20:10)
[2019-10-12] MEDS: ENOXAPARIN 40MG/0.4ML SYRINGE (J1650 PER 10MG) SC SCH (08:50)
[2019-10-12] MEDS: PERCOCET 5MG/325MG TAB PO PRN ×2 (09:01→20:14)
[2019-10-12] MEDS: NS 1,000 ML IV SCH ×3 (09:23→15:49)
--- NOTE | 2019-10-12 10:06 | IPNPDOC ---
Subjective General Date/Time Seen The patient was seen on 10/12/19 at 09:57. Subject Chief Complaint/History The patient is a 38-year-old male admitted with a reason for visit of Multiple Rib Factures. Patient reports feeling mildly better but still has significant chest pain with taking a deep breath, has occasional nonproductive cough. He has been afebrile. He does not report any new areas of pain or discomfort, bruising. He reports he has been being a lot and the urine looks yellow colored, non-concentrated. De nies nausea or vomiting or abdominal bloating. No headaches reported. Current Medications Current Medications Current Medications Medications (Trade) Dose Ordered Sig/Delma Route PRN Reason Start Time Stop Time Status Last Admin Dose Admin Enoxaparin Sodium (Lovenox) 40 mg DAILY SC 10/12/19 09:00 10/12/19 08:50 Home Med (Med Rec Complete!) ASDIRECTED XX 10/11/19 22:15 10/11/19 22:10 DC Ketorolac Tromethamine (ToRADol) 30 mg Q6H IV 10/11/19 23:00 10/16/19 22:59 10/12/19 05:56 Morphine Sulfate (Morphine Sulfate Inj) 4 mg Q15M PRN IV PAIN 10/11/19 19:45 10/11/19 20:29 DC 10/11/19 20:29 Morphine Sulfate (Morphine Sulfate Inj) 4 mg Q4H PRN IV SEVERE PAIN (PS 8-10) 10/11/19 22:00 10/12/19 06:44 Ondansetron HCl (ZOFRAN INJection) 4 mg Q6HP PRN IV NAUSEA OR VOMITING 10/11/19 22:00 Oxycodone/ Acetaminophen (Percocet 5mg/ 325mg Tablet) 1 tab Q4H PRN PO MILD/MODERATE PAIN (PS 1-7) 10/11/19 22:00 Oxycodone/ Acetaminophen (Percocet 5mg/ 325mg Tablet) 2 tab Q6H PRN PO SEVERE PAIN (PS 8-10) 10/11/19 22:00 10/12/19 09:01 Senna/Docusate Sodium (Senokot S) 1 tab BID PO 10/12/19 09:00 10/12/19 08:49 Sodium Chloride 1,000 ml @ 100 mls/hr Q10H IV 10/11/19 21:51 10/12/19 09:23 Allergies Coded Allergies: No Known Allergies (Unverified , 10/11/19) Objective Physical Examination Examination GENERAL APPEARANCE: Patient lying in bed, looks fairly comfortable though grimaces with movement, taking a deep breath. SKIN: Warm and dry, no new areas of ecchymosis, hematoma. HEENT: Normocephalic, no drainage from the left ear.. NECK: No neck tenderness. LUNGS: Clear breath sounds to auscultation but limited on deep breathing due to pain. He was able to take greater than 1500 mL some deep breathing with i ncentive spirometer we accompanying discomfort. Focal tenderness over the right anterior lateral chest wall without any associated bruising or edema. HEART: No chest wall abnormalities. Regular rate and rhythm with no murmurs appreciated. ABDOMEN: Abdomen is nondistended, soft, nontender.. EXTREMITIES: No extremity edema or deformities. Vital Signs Vital Signs Date Time Temp Pulse Resp B/P (MAP) Pulse Ox O2 Delivery O2 Flow Rate FiO2 10/12/19 09:01 18 10/12/19 06:00 98.0 96 137/84 (101) 97 Room Air I&Os I&O- Last 24 Hours up to 6 AM 10/12/19 06:00 Intake Total 2475 ml Output Total 1000 ml Balance 1475 ml Laboratory Data Labs 24H Laboratory Tests 2 10/11/19 19:49: Immature Granulocyte % (Auto) 2.4, Neutrophils (%) (Auto) 71.4H, Lymphocytes (%) (Auto) 18.7L, Monocytes (%) (Auto) 5.2H, Eosinophils (%) (Auto) 1.9, Basophils (%) (Auto) 0.4, Neutrophils # (Auto) 14.1H, Lymphocytes # (Auto) 3.7, Monocytes # (Auto) 1.0H, Eosinophils # (Auto) 0.4, Basophils # (Auto) 0.1, Nucleated Red Blood Cells % (auto) 0.0, Prothrombin Time 13.7, Prothromb Time International Ratio 1.07, Activated Partial Thromboplast Time 25.0, POC Glucose (Misc Panel) 89, POC Sodium (Misc Panel) 139, POC Potassium (Misc Panel) 4.5, POC Chloride (Misc Panel) 107, POC Total CO2 (Misc Panel) 23.0, POC Blood Urea Nitrogen (Misc Panel 27H, POC Ionized Calcium (Misc Panel) 4.2L, POC Creatinine (Misc Panel) 1.1, POC Hematocrit (Misc Panel) 49.0, Anion Gap 9, Glomerular Filtration Rate > 60.0, Calcium Level 8.4L, Total Bilirubin 0.5, Direct Bilirubin 0.1, Aspartate Amino Transf (AST/SGOT) 56H, Alanine Aminotransferase (ALT/SGPT) 47, Alkaline Phosphatase 78, Total Creatine Kinase 1168H, Creatine Kinase MB 8.2H, Creatine Kinase MB Relative Index 0.70, Troponin I < 0.02, Total Protein 7.5, Albumin 3.9, Albumin/Globulin Ratio 1.08, Amylase Level 64, Lipase 251, Ethyl Alcohol Level 0.071H 10/11/19 19:50: Lactic Acid Level 2.1*H 10/11/19 21:22: Urine Color STRAW, Urine Appearance CLEAR, Urine pH 5.0, Urine Specific [place] 1.016, Urine Protein NEGATIVE, Urine Glucose (UA) NEGATIVE, Urine Ketones N EGATIVE, Urine Blood 1+H, Urine Nitrite NEGATIVE, Urine Bilirubin NEGATIVE, Urine Urobilinogen 0.2, Urine Leukocyte Esterase NEGATIVE, Urine WBC (Auto) 1, Urine RBC (Auto) 0, Urine Hyaline Casts (Auto) 0, Urine Bacteria (Auto) NEGATIVE, Urine Squamous Epithelial Cells 0, Urine Sperm (Auto) , Urine Opiates Screen POSITIVEH, Urine Methadone Screen NEGATIVE, Urine Barbiturates Screen NEGATIVE, Urine Phencyclidine Screen NEGATIVE, Urine Amphetamines Screen NEGATIVE, Urine Benzodiazepines Screen NEGATIVE, Urine Cocaine Metabolite Screen NEGATIVE, Urine Cannabinoids Screen POSITIVEH 10/12/19 01:20: Lactic Acid Followup at 4 Hours 1.1 10/12/19 05:41: Immature Granulocyte % (Auto) 0.8, Neutrophils (%) (Auto) 63.4, Lymphocytes (%) (Auto) 26.1, Monocytes (%) (Auto) 7.9H, Eosinophils (%) (Auto) 1.5, Basophils (%) (Auto) 0.3, Neutrophils # (Auto) 8.3, Lymphocytes # (Auto) 3.4, Monocytes # (Auto) 1.0H, Eosinophils # (Auto) 0.2, Basophils # (Auto) 0.0, Nucleated Red Blood Cells % (auto) 0.0, Anion Gap 4L, Glomerular Filtration Rate > 60.0, Calcium Level 7.7L, Total Bilirubin 1.4#H, Direct Bilirubin 0.3H, Aspartate Amino Transf (AST/SGOT) 83H, Alanine Aminotransferase (ALT/SGPT) 45, Alkaline Phosphatase 61, Total Creatine Kinase 3293#H, Total Protein 6.2L, Albumin 3.1#L, Albumin/Globulin Ratio 1.00 CBC/BMP Laboratory Tests 10/11/19 19:49 10/12/19 05:41 Impression Blunt trauma from falling tree with probable some muscle crush injury, mild concussion with loss of consciousness Right anterolateral fifth and sixth rib fracture without displacement or flail injury mild rhabdomyolysis Pain control seems adequate at this time. I encouraged him to sit up on the chair and even ambulate today. I worked with him on doing his incentive spirometer and easily able to put up greater than 1500 mL's and the first 3 deep breaths O Edward is a limiting factor study will still be at risk for pneumonia. He will continue to do incentives routers voluntarily 10 times every hour. Continue with current pain regimen and hopefully transition to oral NSAIDs because narcotics in the next day or so. He is tolerating his diet. No nausea or vomiting or abdominal complaints. No new neurological complaints. He did have some loss of consciousness of unknown known duration as this was not witnessed. Could be secondary to trauma to be secondary to the fact that he did have 2 bottles of beer that afternoon. No signs of any intracranial injury. His creatinine phosphokinase is mildly increased though his BUN and creatinine remains normal and he reports adequate urine output. He'll come down on the IV fluids and encourage more oral intake of liquids. I/O shows 1 L of urine overnight. I anticipate he may need a couple more days to get him comfortable and likewise to continue to monitor the CKs. His chest x-ray from today remains pending. I will be on vacation starting today and will turnover care to Dr. Walker. Plan / VTE VTE Prophylaxis Ordered?: Yes TESSA WELCH MD Oct 12, 2019 10:06
--- NOTE | 2019-10-12 10:59 | REP ---
CHEST, TWO VIEWS: Two views of the chest are performed. There is a small right pleural effusion. There is atelectatic change in the right lung base. There is no pneumothorax. Left lung is clear. Heart is normal in size. The mediastinal silhouette is unremarkable. Electronically Signed by Jaspreet Mena MD 10/12/2019 12:05 P
[2019-10-12 14:00] VITALS: BP 129/84
[2019-10-12] MEDS: NICOTINE 21MG/24HR 1 EA TRANSDERMAL TD SCH (14:59)
[2019-10-12 22:00] VITALS: BP 145/78
[2019-10-13] MEDS ORDERED: MORPHINE 4 MG/ML 1ML VIAL/SYRINGE (J2270) IV ONE ×2 (00:15→13:15)
[2019-10-13] MEDS: NS 1,000 ML IV SCH ×3 (00:51→22:31)
[2019-10-13] MEDS: PERCOCET 5MG/325MG TAB PO PRN ×3 (02:34→19:34)
[2019-10-13] MEDS: KETOROLAC 30 MG/ML 1ML VIAL (J1885 PER 15MG) IV SCH (05:16)
[2019-10-13 06:00] VITALS: BP 147/88
[2019-10-13 06:36] LABS: BASO # 0.1 10^3/uL (0.0-0.2); BASO % 0.5 % (0.0-1.0); EOS # 0.6 10^3/uL (0.0-0.5); EOS % 5.8 % (0.0-3.0); HEMATOCRIT 41.4 % (42.0-52.0); HEMOGLOBIN 13.7 g/dl (13.5-17.5); LYMPH # 3.1 10^3/uL (1.5-5.0); LYMPH % 31.1 % (24.0-44.0); MEAN CORPUSCULAR HEMOGLOBIN 31.9 pg (27.0-33.0); MEAN CORPUSCULAR HGB CONC 33.1 g/dl (32.0-36.5); MEAN CORPUSCULAR VOLUME 96.5 fl (80.0-96.0); MONO # 0.8 10^3/uL (0.0-0.8); MONO % 8.4 % (0.0-5.0); NEUTROPHILS # 5.3 10^3/uL (1.5-8.5); NEUTROPHILS % 53.7 % (36.0-66.0); PLATELET COUNT, AUTOMATED 225 10^3/uL (150-450); RED BLOOD COUNT 4.29 10^6/uL (4.30-6.10); WHITE BLOOD COUNT 9.9 10^3/uL (4.0-10.0)
[2019-10-13 07:35] LABS: ALBUMIN 2.7 GM/DL (3.2-5.2); ALT/SGPT 34 U/L (12-78); BILIRUBIN,TOTAL 1.1 MG/DL (0.2-1.0); BLOOD UREA NITROGEN 14 MG/DL (7-18); CALCIUM LEVEL 7.9 MG/DL (8.5-10.1); CARBON DIOXIDE LEVEL 22 MEQ/L (21-32); CHLORIDE LEVEL 116 MEQ/L (98-107); CPK CREATINE PHOSPHOKINASE 2501 U/L (39-308); CREATININE FOR GFR 0.84 MG/DL (0.70-1.30); GLOMERULAR FILTRATION RATE > 60.0 (>60); GLUCOSE, FASTING 89 MG/DL (70-100); POTASSIUM SERUM 3.7 MEQ/L (3.5-5.1); SODIUM LEVEL 141 MEQ/L (136-145); TOTAL PROTEIN 5.7 GM/DL (6.4-8.2)
[2019-10-13] MEDS: SENOKOT S TAB PO SCH ×2 (08:47→20:11)
[2019-10-13] MEDS: ENOXAPARIN 40MG/0.4ML SYRINGE (J1650 PER 10MG) SC SCH (08:47)
[2019-10-13] MEDS: NICOTINE 21MG/24HR 1 EA TRANSDERMAL TD SCH (08:49)
[2019-10-13] MEDS ORDERED: PERCOCET PO (09:25)
[2019-10-13] MEDS ORDERED: IBUPROFEN 800 MG TAB PO PRN (09:30)
[2019-10-13] MEDS: busPIRone 10 MG TAB PO SCH ×3 (10:13→20:10)
[2019-10-13] MEDS: DULoxetine 30 MG CAP (CYMBALTA) PO SCH (10:13)
[2019-10-13] MEDS: GABAPENTIN 100 MG CAP PO SCH (10:13)
[2019-10-13 14:00] VITALS: BP 172/92
[2019-10-13] MEDS: KETOROLAC 30 MG/ML 1ML VIAL (J1885 PER 15MG) IV PRN (16:49)
[2019-10-13 22:00] VITALS: BP 160/98
[2019-10-13] MEDS ORDERED: MORPHINE 2 MG/ML 1ML VIAL (J2270) IV ONE (22:30)
[2019-10-14] MEDS ORDERED: MORPHINE 2 MG/ML 1ML VIAL (J2270) IV ONE (01:00)
[2019-10-14] MEDS: PERCOCET 5MG/325MG TAB PO PRN ×3 (04:44→18:15)
[2019-10-14 06:00] VITALS: BP 155/90
[2019-10-14 06:16] LABS: BASO # 0.1 10^3/uL (0.0-0.2); BASO % 0.5 % (0.0-1.0); EOS # 0.5 10^3/uL (0.0-0.5); EOS % 4.3 % (0.0-3.0); HEMATOCRIT 43.1 % (42.0-52.0); HEMOGLOBIN 14.2 g/dl (13.5-17.5); LYMPH # 2.4 10^3/uL (1.5-5.0); LYMPH % 22.2 % (24.0-44.0); MEAN CORPUSCULAR HEMOGLOBIN 31.1 pg (27.0-33.0); MEAN CORPUSCULAR HGB CONC 32.9 g/dl (32.0-36.5); MEAN CORPUSCULAR VOLUME 94.3 fl (80.0-96.0); MONO # 0.8 10^3/uL (0.0-0.8); MONO % 7.2 % (0.0-5.0); NEUTROPHILS % 65.1 % (36.0-66.0); PLATELET COUNT, AUTOMATED 251 10^3/uL (150-450); RED BLOOD COUNT 4.57 10^6/uL (4.30-6.10); WHITE BLOOD COUNT 10.7 10^3/uL (4.0-10.0)
[2019-10-14 06:41] LABS: ALT/SGPT 33 U/L (12-78); BILIRUBIN,TOTAL 1.3 MG/DL (0.2-1.0); BLOOD UREA NITROGEN 8 MG/DL (7-18); CALCIUM LEVEL 8.3 MG/DL (8.5-10.1); CARBON DIOXIDE LEVEL 22 MEQ/L (21-32); CHLORIDE LEVEL 111 MEQ/L (98-107); CREATININE FOR GFR 0.89 MG/DL (0.70-1.30); GLOMERULAR FILTRATION RATE > 60.0 (>60); GLUCOSE, FASTING 97 MG/DL (70-100); POTASSIUM SERUM 3.6 MEQ/L (3.5-5.1); SODIUM LEVEL 141 MEQ/L (136-145); TOTAL PROTEIN 6.1 GM/DL (6.4-8.2)
[2019-10-14] MEDS: SENOKOT S TAB PO SCH ×2 (10:24→20:56)
[2019-10-14] MEDS: busPIRone 10 MG TAB PO SCH ×3 (10:24→20:55)
[2019-10-14] MEDS: DULoxetine 30 MG CAP (CYMBALTA) PO SCH (10:24)
[2019-10-14] MEDS: GABAPENTIN 100 MG CAP PO SCH (10:24)
[2019-10-14] MEDS: KETOROLAC 30 MG/ML 1ML VIAL (J1885 PER 15MG) IV PRN (10:24)
[2019-10-14] MEDS: NICOTINE 21MG/24HR 1 EA TRANSDERMAL TD SCH (10:25)
[2019-10-14] MEDS: ENOXAPARIN 40MG/0.4ML SYRINGE (J1650 PER 10MG) SC SCH (10:25)
[2019-10-14] MEDS ORDERED: oxyCODONE 20 MG CR TAB PO ONE (12:30)
[2019-10-14 14:00] VITALS: BP 165/97
[2019-10-14] MEDS: NS 1,000 ML IV SCH (15:17)
[2019-10-14] MEDS: oxyCODONE 20 MG CR TAB PO SCH (20:56)
[2019-10-14 21:00] VITALS: BP 168/100
[2019-10-14 22:00] VITALS: BP 161/95
[2019-10-15] MEDS: NS 1,000 ML IV SCH ×2 (00:16→10:23)
[2019-10-15] MEDS: PERCOCET 5MG/325MG TAB PO PRN ×2 (03:06→11:59)
[2019-10-15] MEDS: KETOROLAC 30 MG/ML 1ML VIAL (J1885 PER 15MG) IV PRN ×2 (03:59→13:11)
[2019-10-15 06:00] VITALS: BP 166/86
[2019-10-15] MEDS: GABAPENTIN 100 MG CAP PO SCH (08:55)
[2019-10-15] MEDS: busPIRone 10 MG TAB PO SCH ×2 (08:55→16:00)
[2019-10-15] MEDS: SENOKOT S TAB PO SCH (08:55)
[2019-10-15] MEDS: DULoxetine 30 MG CAP (CYMBALTA) PO SCH (08:55)
[2019-10-15] MEDS: NICOTINE 21MG/24HR 1 EA TRANSDERMAL TD SCH (08:56)
[2019-10-15] MEDS: oxyCODONE 20 MG CR TAB PO SCH (08:56)
[2019-10-15] MEDS: ENOXAPARIN 40MG/0.4ML SYRINGE (J1650 PER 10MG) SC SCH (08:57)
[2019-10-15 14:00] VITALS: BP 132/71
--- NOTE | 2019-10-15 14:10 | IPN ---
DATE: 10/14/2019 The patient overall is stable from his rib fractures, however, has inadequate pain control at this time. Unfortunately, he is a chronic narcotic user with what appears to be at least 10 of Percocet up to four times a day and he is down to 10 of Percocet less frequently here and that is for a baseline issue, which seems to be probably some reflex sympathetic dystrophy (RSD) or chronic neuralgia associated with some carpal tunnel issues. In any case, with his chronic narcotic use he is really not getting adequate pain relief with the current regime. Otherwise, he has been afebrile and vital signs have been stable. Intakes and outputs have been good. His lungs are clear without crackles, wheezes or rhonchi. IMPRESSION/PLAN: The patient is stable from a respiratory standpoint. His major issue is pain control and I do think that we need to put him on some longer acting narcotics with some additional Percocet in between and thus, will start him on some OxyContin at this time. We will see how he does with that over the next 24 hours and then determine our next course of action. Given his pain control issues, I anticipate he will probably be here for another 24-48 hours before we get them adequately figured out and get him home.
--- NOTE | 2019-10-15 14:12 | IPN ---
DATE: 10/15/2019 The patient seems to be making a little more progress that he did yesterday after he was started on the OxyContin yesterday and with that is given some better background pain control issues. He states his breathing is better. He is getting up moving around a little bit easier and overall is doing better from that standpoint. His lungs are clear and his vitals have been stable. IMPRESSION AND PLAN The patient seems to be making some slow but progressive improvement. I do feel that this pain regime might work well enough for him. Will see if he does well enough over the next 24 hours and if he does well then will discharge him home. He does have a pain clinic evaluation after he is discharged again to continue his Percocet for his chronic neuralgia issues and it may be something that I have discussed with him today that he may want to consider possible Suboxone treatment and he states that he has a psychiatrist appointment in the next month and he really does need to consider possible substance abuse counselor / treatment with long-term narcotics but that I will defer to the pain clinic and his primary care provider. However, will see if he is doing well enough tomorrow and we will probably be able to get him home after breakfast.
[2019-10-15] MEDS ORDERED: OXYC20TA40 PO (15:31)
== END 2019-10-15 16:17 | disposition home or self-care (01) | DRG 57 ==
LOC: M ED 19:23 → M ED INP 21:51 → ENRESERVTM 22:32 → ENRESERVDT 22:32 → M MSPAV 23:21
PROVIDERS: ADMIT Surgery; ATTEND Surgery
DX: S06.0X9A Concussion with loss of consciousness of unspecified duration, initial encounter (principal); S22.41XA Multiple fractures of ribs, right side, initial encounter for closed fracture; M62.82 Rhabdomyolysis; I10 Essential (primary) hypertension; G89.29 Other chronic pain; F32.9 Major depressive disorder, single episode, unspecified; F60.3 Borderline personality disorder; F17.200 Nicotine dependence, unspecified, uncomplicated; F12.10 Cannabis abuse, uncomplicated; Z79.899 Other long term (current) drug therapy; W20.8XXA Other cause of strike by thrown, projected or falling object, initial encounter; Y92.9 Unspecified place or not applicable

== ENCOUNTER → 2020-01-10 | Outpatient (CLI) | payer OTHER, MEDICAID ==
[~2020-01-10] MED LIST changes: +OXYC10TA12 PO; +OXYC20TA40 PO; +PERCOCET PO
[2020-01-10 16:19] LABS: BILIRUBIN,DIRECT 0.1 MG/DL (0.0-0.2); BILIRUBIN,TOTAL 0.6 MG/DL (0.2-1.0); TOTAL PROTEIN 7.5 GM/DL (6.4-8.2); VALPROIC ACID (DEPAKOTE) 14.2 UG/ML (50.0-100.0)
== END ==
LOC: M PLALAB 12:17
PROVIDERS: ATTEND Psychiatry & Neurology Psychiatry
DX: Z79.899 Other long term (current) drug therapy (principal)

== ENCOUNTER → 2020-11-08 | Outpatient (CLI) | payer OTHER ==
--- NOTE | 2020-11-08 09:38 | REPVR ---
PROCEDURE INFORMATION: Exam: MR Head Without Contrast Exam date and time: 11/08/2020 9:27 AM Age: 39 years old Clinical indication: Other: Concussion with loc TECHNIQUE: Imaging protocol: MR of the head without contrast. COMPARISON: CT Head without contrast 10/11/2019 7:56 PM FINDINGS: Brain: Examination of the brain demonstrates normal morphology and signal intensity.No acute infarction, masses, midline shift or acute hemorrhage is seen. No acute intracranial abnormality is identified.There is no abnormal diffusion weighted signal intensity to suggest an acute ischemic event.The cortical escobar / white matter interfaces are preserved throughout the brain.Intracranial flow voids are well maintained. Cerebral ventricles: The ventricular system is not dilated and is appropriate for the patient's age. Bones/joints: Unremarkable. Paranasal sinuses: Normal as visualized. No acute sinusitis. Mastoid air cells: Normal as visualized. No mastoid effusion. Orbital cavity: Unremarkable. Soft tissues: Unremarkable. IMPRESSION: 1. No acute infarction, masses or hemorrhage is seen. No acute intracranial abnormality is identified. 2. There has been no adverse interval change since the previous study. Electronically signed by: Lalo Paulino On 11/08/2020 09:38:31 AM
== END ==
LOC: M PLARAD 08:32
PROVIDERS: ATTEND Psychiatry & Neurology Psychiatry
DX: S06.9X9A Unspecified intracranial injury with loss of consciousness of unspecified duration, initial encounter (principal); X58.XXXA Exposure to other specified factors, initial encounter; Y92.89 Other specified places as the place of occurrence of the external cause; Y93.9 Activity, unspecified; Y99.9 Unspecified external cause status

== ENCOUNTER → 2021-03-29 | Outpatient (REF) | payer OTHER, MEDICAID | LOC: M SFHCADAM 13:04 | PROVIDERS: ATTEND Physician Assistant | DX: Z20.6 Contact with and (suspected) exposure to human immunodeficiency virus [HIV] (principal) ==

== ENCOUNTER → 2024-10-13 | Outpatient (REF) | payer OTHER ==
[2024-10-13 18:44] LABS: ALKALINE PHOSPHATASE 50 U/L (40-129); ALT/SGPT 67 U/L (7.0-40); AST/SGOT 34 U/L (<34); BILIRUBIN,TOTAL 0.5 MG/DL (0.3-1.2); BLOOD UREA NITROGEN 17 MG/DL (9-23); CALCIUM LEVEL 9.2 MG/DL (8.5-10.1); CARBON DIOXIDE LEVEL 25 MMOL/L (20-31); CHLORIDE LEVEL 111 MMOL/L (98-107); CHOLESTEROL LEVEL 221 MG/DL (<200); CHOLESTEROL RISK RATIO 5.68 (<5); CREATININE FOR GFR 1.03 MG/DL (0.70-1.30); GLOMERULAR FILTRATION RATE > 90.0 (>60); GLUCOSE, FASTING 100 MG/DL (60-100); HDL CHOLESTEROL 38.9 MG/DL (>40); LDL CHOLESTEROL 104.5 MG/DL (<100); NON-HDL-C 182.1 MG/DL; POTASSIUM SERUM 4.3 MMOL/L (3.5-5.1); SODIUM LEVEL 141 MMOL/L (136-145); THYROID STIMULATING HORMONE 1.933 uIU/ML (0.55-4.78); TOTAL 25(OH) VITAMIN D 16.3 NG/ML (20.0-100.0); TOTAL PROTEIN 7.2 G/DL (5.7-8.2); TRIGLYCERIDES LEVEL 388 MG/DL (<150)
[2024-10-13 19:12] LABS: HIV 1&2 SCREEN NEGATIVE (NEGATIVE)
[2024-10-13 19:20] LABS: HEPATITIS C VIRUS ABY INDEX 0.04 INDEX (<0.8)
[2024-10-13 20:57] LABS: Trichomonas vaginalis (AMP) NOT DETECTED (NEGATIVE)
[2024-10-13 21:21] LABS: GC DNA AMPLIFICATION NEGATIVE (NEGATIVE)
[2024-10-13 21:23] LABS: HEMOGLOBIN A1c 5.9 % (4.0-6.0)
[2024-10-14 12:40] LABS: CREATININE, URINE 235.2 MG/DL; MAU/CREAT RATIO 17.8 MCG/MG (0.0-30.0)
== END ==
LOC: M LAB REF 17:20
PROVIDERS: ATTEND Physician Assistant
DX: Z11.9 Encounter for screening for infectious and parasitic diseases, unspecified (principal); I10 Essential (primary) hypertension; E66.9 Obesity, unspecified; E55.9 Vitamin D deficiency, unspecified